=== PATIENT | female | born 1980 | race Caucasian/White ===

== ENCOUNTER 2018-03-21 22:29 | Emergency (ER) | payer OTHER, MEDICAID ==
--- OUTSIDE RECORDS SUMMARY | 2018-03-21 22:42 | XMS REPORT ---
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 Student Marie Paulino 2016 [employer] Number: [id number] [address] PayID: [id number] [place] [address] Medicaid Effective: 2017 Policy Number: [id number] Medicaid BRYAN Paulino PayID: [id number] [address] [place] [address] Medicaid Effective: 2017 Policy Number: [id number] Medicaid BRYAN Paulino Expires: 2017 PayID: [id number] [address] [place] [address] Problems Description No Information Family History Date Family Member(s) Problem(s) Comments General Diabetes Mellitus, II mgm General Dementia PGF at 40. General Stroke father's brother. 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 Dom Violence Screen screening has been done feels safe at home, at work, and in the community Allergies, Adverse Reactions, Alerts Date Description Reaction Status Severity Comments 05/29/2017 NKDA active Medications Medication Date Status Form Strength Qnty SIG Indications Ordering Provider Physical Therapy 03/13/ Active evaluate and N94.10 Megha Thomson 2017 treat Ira, dyspareunia M.D. since delivery Hydrocortisone 03/13/ Active Cream 0.2% 15uni apply to L20.82 Megha Berto Valerate 2017 ts affected Ira, area twice a M.D. day as needed Celebrex 02/12/ Active Capsules 200mg 30cap take one S23.41xA Jackie 2017 s capsule by [place], mouth every M.D. day as needed Amoxicillin 08/12/ Hx Capsules 500mg 30cap three times J01.90 Megha Thomson 2018 - s a day Ira, 02/12/ M.D. 2018 Ketoconazole 06/24/ Hx Cream 2% 15gm apply thin Megha Thomson 2017 - layer twice Ira, 02/12/ a day to M.D. 2018 left hand and left arm. No Active 05/29/ Hx Unknown Medications 2016 - 2016 Immunizations CPT Code Status Date Vaccine Lot # [id number] Given 11/11/2017 Tdap Tetanus, W Pertussis [id number] Given 05/31/2017 Influenza vac quadrivalent preservative free 3yrs [id number] and up Vital Signs Date Vital Result Comment 03/13/2018 BP Systolic 108 mmHg BP Diastolic 62 mmHg Heart Rate 68 /min Body Temperature 97.7 F Weight 128.00 lb 02/12/2018 BP Systolic 102 mmHg BP Diastolic 70 mmHg Heart Rate 76 /min Body Temperature 98.1 F 11/11/2017 BP Systolic 90 mmHg BP Diastolic 62 mmHg Heart Rate 68 /min Body Temperature 98.1 F 08/12/2017 BP Systolic 122 mmHg BP Diastolic 58 mmHg Heart Rate 72 /min Body Temperature 97.6 F Height 62 inches 5'2" Weight 134.12 lb BMI (Body Mass Index) 24.5 kg/m2 05/29/2017 BP Systolic 90 mmHg BP Diastolic 70 mmHg Heart Rate 60 /min Body Temperature 98.0 F Respiratory Rate 18 /min Height 62 inches 5'2" Weight 121.00 lb BMI (Body Mass Index) 22.1 kg/m2 Results Description No Information Procedures Description No Information Encounters Type Date Location Provider CPT E/M Dx Office Visit 03/13/2018 1:00p [facility] Megha Roth, [address] N94.10 Kiah L20.82 L65.9 E55.9 I78.1 Office Visit 02/12/2018 11:40a [facility] Jackie Owens M.D. 37627 S23.41xA X50.3xxA Office Visit 08/12/2017 3:00p [facility] Megha Roth M.D. 62341 J01.90 K59.09 Office Visit 05/29/2017 10:40a [facility] Megha Roth M.D. 49013 Z00.00 J30.89 B35.4 E04.9 Plan of Care 03/13/2018 - Megha Roth M.D.N94.10 Unspecified dyspareuniaNew Medication :Physical KzmmwuwY50.82 Flexural eczemaNew Medication:Hydrocortisone Valerate 0.2 %L65.9 Nonscarring hair loss, unspecifiedNew Labs:Anti-Thyroid Antibodies ScreenFree T3 (Fma)Free T4 ([facility]ma/[facility])TSH (Fma/[facility])Ferritin (Fma/[facility]/ [facility])RBC ZincCBC Electronic (Fma)Iron+Tibc%Sat(Fma/[facility])Magnesium (Fma /[facility])Testosterone Free & TotalEstrogens Fractionated SerumCCS-Comp Metabolic ([facility])Comments:referral to Dr. Nadir Patel. refer to endocrinology Dr. Hankins55.9 Vitamin D deficiency, unspecifiedNew Labs:Vitamin D, 25Hydroxy( Fma/LCI78.1 Nevus, non-neoplasticComments:keep your appointment with derm in [place].If you feel that you want the mole on your foot removed sooner rather than later, I can refer you to a surgeon.AllComments:~B_~U_Medication Management ~b_~u_ Patient Understands medications she's taking? Yes No Are there Barriers to Adherence? Yes No $$ insurance doesn't cover enough local dermatologists Hasthe patient been asked about herbal supplements and therapies , and OTC meds? Yes No
[2018-03-21] MEDS ORDERED: Tetan/Diph/Pertus SYR(Tdap)* 0.5 ML SYR(BOOSTRIX) use SYR IM ONE (23:36)
--- NOTE | 2018-03-21 23:36 | ED ---
Laceration/Wound HPI - HPI Summary HPI Summary: Complains of laceration to right lateral ankle when she dropped an empty bottle and the glass broke and cut her tonight. Denies any loss of function or sensation. Bleeding controlled. Medical history is none. No anti-coag. - History of Current Complaint Stated Complaint: RT FOOT INJURY Time Seen by Provider: 03/21/18 22:43 Hx Obtained From: Patient Mechanism of Injury: Sharp/Blunt Trauma Current Severity: Mild Pain Intensity: 2 Pain Scale Used: 0-10 Numeric - Allergy/Home Medications Allergies/Adverse Reactions: Allergies Allergy/AdvReac Type Severity Reaction Status Date / Time No Known Allergies Allergy Verified 03/21/18 22:33 PMH/Surg Hx/FS Hx/Imm Hx Endocrine/Hematology History: Denies: Hx Anticoagulant Therapy Cardiovascular History: Denies: Hx Cardiac Arrest History: Denies: Hx Dialysis Neurological History: Denies: Hx CVA Infectious Disease History: No Infectious Disease History: Denies: Traveled Outside the [place] in Last 30 Days - Social History Alcohol Use: None Hx Substance Use: No Substance Use Type: Reports: None Review of Systems Constitutional: Negative Eyes: Negative ENT: Negative Cardiovascular: Negative Respiratory: Negative Gastrointestinal: Negative Genitourinary: Negative Musculoskeletal: Negative Skin: Other Neurological: Negative Psychological: Normal All Other Systems Reviewed And Are Negative: Yes Physical Exam - Summary Physical Exam Summary: Small laceration superficial laceration to lateral right malleolus. PMS intact distally Triage Information Reviewed: Yes Vital Signs On Initial Exam: Initial Vitals Temp Pulse Resp BP Pulse Ox 97.5 F 108 18 117/49 98 03/21/18 22:32 03/21/18 22:32 03/21/18 22:32 03/21/18 22:32 03/21/18 22:32 Vital Signs Reviewed: Yes Appearance: Positive: Well-Appearing Skin: Positive: Warm Head/Face: Positive: Normal Head/Face Inspection Eyes: Positive: Normal Neck: Positive: Supple Respiratory/Lung Sounds: Positive: Clear to Auscultation Cardiovascular: Positive: Normal Abdomen Description: Positive: Nontender Musculoskeletal: Positive: Normal Neurological: Positive: Normal Psychiatric: Positive: Normal AVPU Assessment: Alert - [place] Coma Scale Best Eye Response: 4 - Spontaneous Best Motor Response: 6 - Obeys Commands Best Verbal Response: 5 - Oriented Coma Scale Total: 15 Procedures - Laceration/Wound Repair 1 Location: lower extremity Description: Linear Anesthesia: Local Length, Depth and Shape: 3 cm x 0.5 cm Betadine Prep?: No - chlorhexidine prep Irrigated w/ Saline (ccs): 40 - chlorhexidine plus saline Laceration/Wound Explored: clean - cor accident with saline Debridement: minimal Suture Type: Prolene Number of Sutures: 5 - 4. 0 Prolene Layer Closure?: No Diagnostics - Vital Signs Vital Signs Temp Pulse Resp BP Pulse Ox 03/21/18 22:32 97.5 F 108 18 117/49 98 - Laboratory Lab Statement: Any lab studies that have been ordered have been reviewed, and results considered in the medical decision making process. Laceration Repair Course/Dx - Course Course Of Treatment: Complains of laceration to right lateral ankle when she dropped an empty bottle and the glass broke and cut her tonight. Denies any loss of function or sensation. Bleeding controlled. Medical history is none. No anti-coag. Physical exam:Small laceration superficial laceration to lateral right malleolus. PMS intact distally. Patient breast feeding. Opted to accept a prescription for Keflex, and will take only if symptoms warrant. - Clinical Impression Provider Diagnoses: Laceration Discharge - Sign-Out/Discharge Documenting (check all that apply): Patient Departure - Discharge Plan Condition: Stable Disposition: HOME Prescriptions: Cephalexin CAP* [Keflex CAP*] 500 mg PO TID 5 Days #15 cap Patient Education Materials: Care For Your Stitches (ED), Laceration (ED) Referrals: No Primary Care Phys,NOPCP [Primary Care Provider] - Additional Instructions: Take antibiotics if symptoms indicate. Sutures out in 10 days. May wash with warm running water and soap. Do not submerge wound. Return to the ED for any new or worsening symptoms - Billing Disposition and Condition Condition: STABLE Disposition: Home
[2018-03-22 00:19] VITALS: BP 111/62
== END 2018-03-22 00:17 | disposition home or self-care (01) ==
LOC: ED 22:29
DX: S91.011A Laceration without foreign body, right ankle, initial encounter (principal); W25.XXXA Contact with sharp glass, initial encounter; Y92.9 Unspecified place or not applicable
CPT/HCPCS: 12002; 90471; 99282

== ENCOUNTER 2019-09-16 06:15 | Day surgery (SDC) | payer OTHER, MEDICAID ==
[2019-09-16] MEDS ORDERED: Bupivacaine 0.25% SDV* 30 ML ONE (07:47)
[2019-09-16 08:15] VITALS: BP 91/51
--- NOTE | 2019-09-16 21:47 | OP ---
DATE OF OPERATION: 09/16/19 - [facility] DATE OF : 80 SURGEON: Miguel Rendon MD EMAIL MARKETING COORDINATOR: FEDE Austin ANESTHESIOLOGIST: None. ANESTHESIA: Local only with 1% buffered lidocaine with epinephrine. PRE-OP DIAGNOSIS: Left de Quervain's with tendon sheath nodule. POST-OP DIAGNOSIS: Left de Quervain's. OPERATIVE PROCEDURE: Left wrist de Quervain's release. INDICATIONS: Ms. Pedersen has a very thickened and inflamed tendon sheath. The de Quervain's is quite severe. We talked about treatment options. She wished to proceed with surgery. ESTIMATED BLOOD LOSS: 10 mL. COMPLICATIONS: None. FINDINGS: See above and below. There was an accessory compartment. DESCRIPTION OF PROCEDURE: Ms. Pedersen was seen in the preoperative holding area. The correct site, side and procedures were identified. We came back to the operating room and the arm was prepped and draped in the usual fashion. A time-out was performed. The arm was exsanguinated with the Esmarch and the tourniquet inflated to 200 mmHg. I made a 2 cm transverse incision just proximal to the radial styloid over the first dorsal compartment tendon sheath. Full-thickness flaps were bluntly raised off the tendon sheath. The Ragnell retractors were placed. The very thickened tendon sheath was released along its dorsal margin with a #15 blade and accessory compartment was identified. The septum was released and fully excised to release the accessory compartment. The release was completed distally and proximally with a Tenotomy scissors. I confirmed the release, everything was looking good. There was no nodule, it was just a very thickened tendon sheath. At this point, I thought we had done all could do. I irrigated out the wound. The skin was closed with 4-0 Monocryl and a Steri-Strip. A little bit of 0.25% Marcaine was infiltrated about the area. She was taken to the recovery room in stable condition. [id number]/[facility] #: [id number] MTDD
== END 2019-09-16 08:32 | disposition home or self-care (01) ==
LOC: OREAST 06:15
PROVIDERS: ATTEND Orthopaedic Surgery Hand Surgery
DX: M65.4 Radial styloid tenosynovitis [de Quervain] (principal); K21.9 Gastro-esophageal reflux disease without esophagitis; F41.8 Other specified anxiety disorders
CPT/HCPCS: 81025; J3490